=== PATIENT | female | born 1980 | race Caucasian/White ===

== ENCOUNTER 2024-03-14 01:19 | Day surgery (SDC) | payer OTHER, SELFPAY ==
[2024-03-07 09:43] VITALS: BMI 34.4
--- NOTE | 2024-03-07 10:12 | PC.NURSE ---
Report to the Outpatient Waiting Room, entrance under the green pavilion located off [facility], at 0600 on 03-14-24. Planned Procedure Time: 0730.? Time changes happen often and if your time is changed the preop area will call you the afternoon before. - You and your visitor will be asked to self-screen and do not enter if you have any COVID symptoms. Please call surgeon if you need to reschedule. - A mask is optional within the hospital at this time. Patients may have clear liquids (water, carbonated beverages, clear teas, apple juice) until 3 hours prior to surgery with a maximum of 20 ounces. 0430 - No food from midnight until time of surgery and no smoking - Infants may have breast milk until 4 hours before surgery, formula 6 hours prior to surgery. - Children will be allowed to drink immediately following surgery.? If applicable, please bring a bottle or sippy cup to assist with drinking. Juice, water, soda, and popsicles are readily available.? For infants on formula, please bring formula the day of surgery.? Pacifiers are allowed. Take only the following medications with a SIP of water on the morning of surgery: None DO NOT STOP ANY OF YOUR OTHER PRESCRIPTION MEDICATIONS PRIOR TO SURGERY EXCEPT THE FOLLOWING Medications to discontinue per physician: vitamins and supplements Date to take last dose: 03-11-24 Please no make-up, nail ukrainian, hairspray, perfume, deodorant, or body powder the day of surgery.? No jewelry (including any body piercings) or valuables the day of surgery, leave them at home.? Please take a shower or bath the night before, or the morning of, surgery with an antibacterial soap.? Wear comfortable, loose fitting clothing.? Children are encouraged to wear pajamas. - Jewelry must be removed prior to entering the operating room.? Rings and piercings that are not removed may be cut off. - The hospital will not accept responsibility for valuables.? - Please leave all valuables, including medications, at home the day of surgery. If you are going home after surgery, a licensed customer service driver must drive you home.? - NO public transportation without another adult if you receive anesthesia. - We recommend that an adult stay with you for 24 hours following discharge. - We also recommend that you do not drive, make important decision, drink alcoholic beverages, or take any drugs that were not prescribed by your health care provider for at least 24 hours after your discharge time. For Pediatric surgeries, we recommend two adults accompany the child home. Follow any additional instructions given to you from your surgeon. Telephone instructions given to Steph Thacker and asked if any additional questions and then verbalized understanding. Patient advised to call surgeon office or pre surgery nurse liaison [phone] if any additional questions.
[2024-03-14] VITALS (10 sets, daily range): BP systolic 93–126; BP diastolic 50–93; PULSE 57–97; RESP 13–20; TEMP 36.2–36.5; O2SAT 94–100
--- NOTE | 2024-03-14 05:53 | ECG_ITS ---
Test Date: 2024-03-14 06:48:28 Measurements Intervals Max Rate: 80 P: 21 AL: 146 QRS: 16 QRSD: 94 T: 32 QT: 378 QTc: 438 Interpretive Statements SINUS RHYTHM LOW QRS VOLTAGE IN PRECORDIAL LEADS BORDERLINE ST ABNORMALITY- HIGH LATERAL LEADS BASELINE WANDER- V1 BORDERLINE ECG No previous ECG available for comparison Electronically Signed On 03-14-2024 10:38:15 CDT by Evangelist Pleitez D.O.
[2024-03-14] MEDS: ACETAMINOPHEN 500 MG TABLET 1000 MG PO (06:50)
[2024-03-14] MEDS: LACTATED RINGERS 1,000 ML 30 ML IV CONT ×2 (06:50→08:58)
[2024-03-14] MEDS: KETOROLAC 15 MG/ML VIAL (*BKC) IV PUSH (06:50)
[2024-03-14 06:53] LABS: Anion Gap 14 mmol/L (4-12); Blood Urea Nitrogen 14 mg/dL (7-17); Calcium 9.3 mg/dL (8.4-10.2); Carbon Dioxide 15 mmol/L (22-30); Chloride 109 mmol/L (98-107); Estimated CRCL calculation 85 ml/min; Estimated Glomerular Filt Rate > 60; Glucose 104 mg/dL (65-110); Potassium 3.6 mmol/L (3.4-5.0); Sodium 138 mmol/L (137-145)
--- NOTE | 2024-03-14 07:14 | P.PNAN_ITS ---
Anes - Initial Pre Proc Eval Procedure: Operation Date: 03/14/24 07:30 Proposed Procedures p Laparoscopic Bilateral Salpingo oophorectomy - David Eckert MD Date/Time: 03/14/24 07:14 Surgeon: David Eckert MD Pre Op Diagnosis: ovary cyst Patient Data Age: 43 Gender: F Height: 1.68 m Weight: 96.3 kg Last Vital Signs Temp 97.2 F L 03/14/24 06:50 Pulse 88 03/14/24 06:50 Resp 14 03/14/24 06:50 BP 126/82 03/14/24 06:50 Pulse Ox 100 03/14/24 06:50 O2 Del Method Room Air 03/14/24 06:50 Allergies Allergy/AdvReac Type Severity Reaction Status Date / Time latex Allergy Mild Rash Verified 03/07/24 09:34 levothyroxine AdvReac Mild Muscle Pain Verified 03/07/24 09:34 Home Medications Medication Instructions Recorded Confirmed Type atorvastatin 10 mg tablet 10 mg PO DAILY 03/07/24 03/07/24 History empagliflozin 10 mg tablet 10 mg PO DAILY 03/07/24 03/07/24 History (Jardiance) magnesium 200 mg tablet 200 mg PO DAILY 03/07/24 03/07/24 History metformin 500 mg tablet 500 mg PO BID 03/07/24 03/07/24 History topiramate 25 mg tablet 25 mg PO DAILY 03/07/24 03/07/24 History ubrogepant 100 mg tablet (Ubrelvy) 100 mg PO PRN PRN Migraine Headache 03/07/24 03/07/24 History Laboratory Tests 03/14/24 06:37 Sodium 138 mmol/L (137-145) Potassium 3.6 mmol/L (3.4-5.0) Chloride 109 H mmol/L (98-107) Carbon Dioxide 15 L mmol/L (22-30) Anion Gap 14 H mmol/L (4-12) BUN 14 mg/dL (7-17) Creatinine 0.90 mg/dL (0.7-1.0) Estim Creat Clear Calc 85 ml/min Estimated GFR > 60 (59 - ) Glucose 104 mg/dL (65-110) Calcium 9.3 mg/dL (8.4-10.2) Patient hx anesthesia problems: post op nausea/vomiting Family hx anesthesia problems: none Results Review: All pre-operative results and documents have been reviewed as part of the pre- operative evaluation. [facility] Social History Social History Smoking status: Never smoker Second hand tobacco smoke exposure: Yes (spouse vapes) Alcohol intake: never Substance use: never Substance use type: does not use Living arrangements: with family Spiritual care concerns: No Anes - Eval Final PreProcedure Day of Procedure 03/14/24 07:14 Patient weight: obese Heart: regular rate and rhythm Lungs: clear to auscultation Airway: Mallampati scale class II Neurological: alert and oriented Last oral intake: >/= 8 hours ASA classification: III Emergent: no Anesthetic plan: proceed Anesthesia type and monitoring: general ETT and standard monitoring Results Review: All pre-operative results and documents have been reviewed as part of the pre- operative evaluation. Informed Consent: The patient's anesthetic plan and its attendant risks and benefits were discussed with the patient/family/POA. Questions were solicited and answers provided to the satisfaction of the patient/family/POA.
[2024-03-14] MEDS: SCOPOLAMINE 1 MG PATCH 1 PATCH TRANSDERM (07:15)
--- NOTE | 2024-03-14 07:16 | WPDHPUPDATE1 ---
History and Physical Update Update Date/Time: 03/14/24 07:16 History and Physical has been reviewed, including an updated exam of the patient. There are NO changes in the patient's condition. Risks, benefits, and alternatives have been discussed and questions answered. Patient agrees to proceed with procedure.
--- NOTE | 2024-03-14 07:18 | PM.IMHP ---
H&P: HPI History of Present Illness Date/Time: 03/14/24 07:18 Chief Complaint: pelvic pain Narrative: this patient is 43-year-old female with chronic right-sided pelvic pain. She has recurrent right ovarian cyst. We have agreed to perform a laparoscopic right salpingo-oophorectomy. The patient understands the details of the procedure. The procedure has been explained in detail. She understands the risks. She understands that injuries may occur that result in hospitalization, more surgery, and severe illness. She understands risk of hemorrhage and infection. She denies any chest pain or shortness of breath. She denies any nausea, vomiting, fever, chills. Review of Systems Review of Systems: All systems reviewed & are unremarkable except as noted in HPI and below Constitutional: Constitutional: Denies chills, Denies fatigue, Denies fever(s) and Denies weakness Eyes: Eyes: Denies blurry vision, Denies change in vision, Denies loss of peripheral vision, Denies loss of vision, Denies other visual disturbances and Denies eye pain ENT: Denies vertigo, Denies dizziness, Denies hearing loss, Denies mouth pain, Denies nasal obstruction, Denies neck mass and Denies neck pain Cardiovascular: Cardiovascular: Denies chest pain, Denies diaphoresis, Denies syncope, Denies leg edema and Denies dyspnea Respiratory: Respiratory: Denies chest congestion, Denies cough, Denies hemoptysis, Denies dyspnea and Denies wheezing Gastrointestinal: Gastrointestinal: Denies abdominal pain, Denies constipation, Denies diarrhea, Denies nausea and Denies vomiting Genitourinary: Genitourinary: Denies hematuria, Denies change in libido, Denies nocturia, Denies genital lesions, Denies flank pain and Denies urinary urgency Musculoskeletal: Musculoskeletal: Denies abnormal gait, Denies back pain, Denies myalgias, Denies arthralgias, Denies joint swelling, Denies muscle weakness and Denies neck pain Integumentary/Breasts: Skin/Breast: Denies swelling, Denies breast pain, Denies breast mass, Denies dry skin, Denies nipple discharge, Denies unusual bruising and Denies jaundice Neurologic: Denies Neuro-related abnormal movements, Denies Abnormal speech present, Denies abnormal gait, Denies behavioral changes, Denies confusion, Denies vertigo, Denies dizziness, Denies syncope, Denies loss of vision, Denies memory loss, Denies convulsions and Denies weakness Psychiatric: Psychiatric: Denies abnormal sleep pattern, Denies behavioral changes, Denies change in libido, Denies confusion, Denies depression, Denies anhedonia and Denies memory loss Endocrine: Endocrine: Reports no additional endocrine complaints, Denies change in libido and Denies fatigue Hematologic/Lymphatic: Hematologic/Lymphatic: Reports no additional hematologic/lymphatic complaints Allergic/Immunologic: Allergic/Immunologic: Reports no additional allergic/immunologic complaints and Denies wheezing PMFSH Social History Social History Smoking status: Never smoker Second hand tobacco smoke exposure: Yes (spouse vapes) Alcohol intake: never Substance use: never Substance use type: does not use Living arrangements: with family Spiritual care concerns: No Meds Home Medications and Allergies Home Medications Medication Instructions Recorded Confirmed Type atorvastatin 10 mg tablet 10 mg PO DAILY 03/07/24 03/07/24 History empagliflozin 10 mg tablet 10 mg PO DAILY 03/07/24 03/07/24 History (Jardiance) magnesium 200 mg tablet 200 mg PO DAILY 03/07/24 03/07/24 History metformin 500 mg tablet 500 mg PO BID 03/07/24 03/07/24 History topiramate 25 mg tablet 25 mg PO DAILY 03/07/24 03/07/24 History ubrogepant 100 mg tablet (Ubrelvy) 100 mg PO PRN PRN Migraine Headache 03/07/24 03/07/24 History Allergies Allergy/AdvReac Type Severity Reaction Status Date / Time latex Allergy Mild Rash Verified 03/07/24 09:34 levothyroxine AdvReac Mild Muscle Pain Verified 03/07/24 09:34 Vital
[2024-03-14 09:03] LABS: Glucose Point of Care 113 mg/dl (65-105)
[2024-03-14] MEDS: ONDANSETRON INJ 4 MG/2 ML VIAL IV PUSH (09:11)
[2024-03-14] MEDS: fentaNYL CITRATE INJ (*CRX) 100 MCG/2 ML VIAL 25 MCG IV PUSH ×6 (09:14→09:56)
--- NOTE | 2024-03-14 09:18 | W.PM.PROC2 ---
Procedure Note - Detailed Date of Procedure 03/14/24 Pre-op Diagnosis ovary cyst, pelvic pain Post-op Diagnosis Same Procedure Performed laparoscopic bilateral oophorectomy Surgeon David Eckert MD Anesthesia General Indications Pelvic pain Findings cystic left ovary, normal-appearing right ovary, left ovary was moderately adherent to the left pelvic sidewall. Description of Procedure The patient was taken to the operating room. She was prepped and draped in the dorsal lithotomy position after induction general anesthesia. A 5 mm incision was made with a scalpel on the abdominal skin in the left upper quadrant of the abdomen. A 5 mm trocar was inserted into the intra-abdominal cavity under direct visualization the scope. In the same fashion a 11 mm left lower quadrant trocar was inserted and a 11 mm infraumbilical trocar was inserted. Left ovary was dissected off the left pelvic sidewall. The ureters were identified in that area and dissected out. Some minor bleeding was temporized. Surgicel was placed in this area. It was completely dry before moving on. The right ovary was raised, infundibulopelvic ligament was cauterized transected, both ovaries were placed in endobag. Ovaries taken out the left lower quadrant trocar site through an endobag using a ring forceps. The pelvis was irrigated. The pneumoperitoneum was reduced. The trocars were removed. Skin was closed with subcuticular 4 micro. The patient's incisions were covered with Dermabond. She was taken recovery room in stable condition. Sponge lap and needle counts were correct x2. Estimated Blood Loss 20 Complications No immediate complications Condition Stable Disposition Same day
[2024-03-14] MEDS: diphenhydrAMINE HCl INJ 50 MG/ML VIAL 12.5 MG IV PUSH (10:17)
[2024-03-14] MEDS: oxyCODONE HCL (*CRX) 5 MG TAB IR PO (11:14)
== END 2024-03-14 11:44 | disposition home or self-care (01) ==
PROVIDERS: Anesthesiology; Visit Provider Obstetrics & Gynecology
PROC: (CPT 49320; principal; 2024-03-14 07:30)
DX: N83.202 Unspecified ovarian cyst, left side (principal); N83.201 Unspecified ovarian cyst, right side; N73.6 Female pelvic peritoneal adhesions (postinfective); Z79.84 Long term (current) use of oral hypoglycemic drugs; E66.9 Obesity, unspecified; Z68.34 Body mass index [BMI] 34.0-34.9, adult
CPT/HCPCS: 58661; 36415; 80048; 82948; 88305; 93005; A9270; J1100; J1200; J1885; J2250; J2405; J2704; J3010; J7030; J7120